=== PATIENT | male | born 1960 | race Two or more races ===

== ENCOUNTER 2019-06-16 12:21 | Inpatient (IN) | payer SELFPAY ==
[~2019-06-16] VITALS: Ht 185.4 cm; Wt 73.1 kg
[2019-06-16 13:29] LABS: Basophils # (auto) 0.2 uL; Basophils % (auto) 1.4 % (0.0-2.0); Eosinophils # (auto) 0.1 uL; Eosinophils % (auto) 0.9 % (0.0-7.0); Hematocrit 52.6 % (41.0-53.0); Hemoglobin 17.6 g/dL (13.5-17.5); Lymphocytes # (auto) 4.6 uL; Lymphocytes % (auto) 28.7 % (10.0-50.0); Mean Corpuscular Hemoglobin 32.7 pg (28.0-32.0); Mean Corpuscular Hgb Conc. 33.4 g/dL (32.0-36.0); Monocytes # (auto) 1.4 uL; Neutrophils # (auto) 9.6 uL; Nucleated Red Blood Cells % 0.2 %; Platelet Count (auto) 230 10^3/uL (140-450); Red Blood Cells 5.37 10^6/uL (4.5-5.90); Red Cell Distribution Width 14.3 % (11.8-14.3); White Blood Cell 15.9 10^3/uL (4.4-10.8)
[2019-06-16 13:44] LABS: Albumin 3.7 g/dL (3.4-5.0); Anion Gap 10 (5-15); Blood Urea Nitrogen 14 mg/dL (7-18); Calcium 8.9 mg/dL (8.5-10.1); Carbon Dioxide 23 mmol/L (21-32); Chloride 106 mmol/L (98-107); Glucose 122 mg/dL (74-106); Lactic Acid w/Reflex 4.8 mmol/L (0.4-2.0); Magnesium 2.1 mg/dL (1.6-2.6); Potassium 3.7 mmol/L (3.5-5.1); Sodium 139 mmol/L (136-145)
[2019-06-16 13:46] LABS: BUN/Creatinine Ratio 11.7; GFR African American 79 mL/min; GFR Non-African American 65 mL/min
[2019-06-16 14:03] LABS: Alanine Aminotransferase 36 U/L (16-61); Alkaline Phosphatase 167 U/L (45-117); Aspartate Aminotransferase 27 U/L (15-37); Bilirubin, Total 0.6 mg/dL (0.2-1.0); Total Protein 8.1 g/dL (6.4-8.2)
[2019-06-16] MEDS ORDERED: SODIUM CHLORIDE 0.9% 2,000 ML IV ONE (14:45)
[2019-06-16] MEDS ORDERED: ALBUTEROL SULF 2.5 MG/0.5ML(0.5%) NEB SOLN NEB PRN (16:30)
[2019-06-16] MEDS ORDERED: ACETAMINOPHEN 500 MG TAB PO PRN (16:30)
[2019-06-16] MEDS ORDERED: ONDANSETRON HCL 4 MG/2 ML VIAL IV PRN (16:30)
[2019-06-16] MEDS ORDERED: MORPHINE SULF INJ 2 MG/ML SYRINGE 1ML IV PRN ×2 (16:30)
[2019-06-16] MEDS ORDERED: NITROGLYCERIN 0.4 MG SL TAB SL PRN (16:30)
[2019-06-16] MEDS ORDERED: HYDROcodone-ACET 5/325MG TAB PO PRN (16:30)
[2019-06-16] MEDS ORDERED: IPRATROPIUM BROM 0.5 MG/2.5ML INH SOL NEB PRN (16:30)
[2019-06-16] MEDS: cefTRIAXone 1GM/50ML D5W 50 ML IV SCH ×2 (16:51→18:46)
[2019-06-16 16:59] LABS: Urine Bacteria NONE SEEN /hpf (None Seen); Urine Blood TRACE /uL (Negative); Urine Mucus FEW (None Seen); Urine Specific Gravity 1.018 (1.001-1.035); Urine WBC 64 /hpf (0 - 3)
[2019-06-16 17:11] LABS: Alcohol, Urine < 3.0 mg/dL (0-5); Amphetamine Screen, Urine NEGATIVE (NEGATIVE); Barbiturate Scree,Urine NEGATIVE (NEGATIVE); Benzodiazephine Screen, Urine NEGATIVE (NEGATIVE); Cannabinoid Screen, Urine POSITIVE (NEGATIVE); Cocaine Screen, Urine NEGATIVE (NEGATIVE); Opiate Scree,Urine NEGATIVE (NEGATIVE); Phencyclidine Screen, Urine NEGATIVE (NEGATIVE)
--- NOTE | 2019-06-16 17:28 | NUR ---
PATIENT ARRIVED TO UNIT PATIENT ALERT AND ORIENTED X4 BROTHER AT BEDSIDE. PATIENT DENIES ALL PAIN, SOB OR ANY DISTRESS AT THIS TIME. ORIENTED PATIENT TO UNIT, STAFF, CALL LIGHT VISITING HOURS AND SMOKING POLICY AND POC. PATIENT VERBALIZED UNDERSTANDING. BED IS IN LOWEST LOCKED POSITION CALL LIGHT WITHIN REACH. WILL CONTINUE TO MONITOR
[2019-06-16 18:15] VITALS: BP 158/98
--- NOTE | 2019-06-16 19:00 | NUR ---
RT NOTE: PT SITTING UP RIGHT ON ROOM AIR WITH NO RESPIRATORY DISTRESS. NOTED PT ALERT AND ORIENTATED. SPO2 98% HR 102, RR 18. BS CLEAR AND DECREASED. PT DENIES SOB AT THIS TIME. PT NOTIFIED TO HAVE RT PAGED IF SOB OCCURS.
--- NOTE | 2019-06-16 19:50 | NUR ---
OPENING SHIFT NOTE RECEIVED REPORT FROM DAYSHIFT RN. PATIENT A/O X4, AMBULATORY. PATIENT LYING IN BED WITH EYES CLOSED. NO S/S OF DISTRESS OR SOB, NO PAIN NOTED OR REPORTED. UPDATED PATIENT ON POC, VERBALIZED UNDERSTANDING. BED LOCKED IN LOW POSITION, CALL LIGHT WITHIN REACH. WILL CONTINUE TO MONITOR PATIENT Q1HR AND PRN.
[2019-06-16 22:00] VITALS: BP 139/96
[2019-06-16] MEDS: CLINDAMYCIN 300MG IV 50 ML IV SCH (22:05)
[2019-06-17 03:15] VITALS: BP 139/96
[2019-06-17 05:14] VITALS: BP 137/88
[2019-06-17 05:18] LABS: Basophils # (auto) 0.1 uL; Basophils % (auto) 0.6 % (0.0-2.0); Eosinophils # (auto) 0.1 uL; Eosinophils % (auto) 1.3 % (0.0-7.0); Hematocrit 46.6 % (41.0-53.0); Hemoglobin 15.7 g/dL (13.5-17.5); Lymphocytes # (auto) 2.9 uL; Lymphocytes % (auto) 27.4 % (10.0-50.0); Mean Corpuscular Hemoglobin 32.9 pg (28.0-32.0); Mean Corpuscular Hgb Conc. 33.6 g/dL (32.0-36.0); Monocytes # (auto) 1.2 uL; Monocytes % (auto) 11.6 % (0.0-12.0); Neutrophils # (auto) 6.3 uL; Neutrophils % (auto) 59.1 % (37.0-80.0); Nucleated Red Blood Cells % 0.1 %; Platelet Count (auto) 178 10^3/uL (140-450); Red Blood Cells 4.76 10^6/uL (4.5-5.90); Red Cell Distribution Width 14.3 % (11.8-14.3); White Blood Cell 10.6 10^3/uL (4.4-10.8)
[2019-06-17] MEDS: CLINDAMYCIN 300MG IV 50 ML IV SCH ×3 (05:42→21:44)
[2019-06-17 05:46] LABS: Albumin 2.9 g/dL (3.4-5.0); BUN/Creatinine Ratio 14.3; Calcium 8.2 mg/dL (8.5-10.1); Potassium 3.9 mmol/L (3.5-5.1)
[2019-06-17 05:51] LABS: Bilirubin, Total 0.5 mg/dL (0.2-1.0); Total Protein 6.5 g/dL (6.4-8.2)
--- NOTE | 2019-06-17 06:10 | NUR ---
Respiratory note: NO RESPIRATORY DISTRESS NOTED AT THIS TIME. HHN TX NMOT INDICATED AT THIS TIME. HR 82 SPO2 94 ON RA RR 14 BS CLEAR. PT EDUCATED ON USE OF NURSE CALL BUTTON IN CASE HE FEELS SOB.
[2019-06-17 08:00] VITALS: BP 133/86
--- NOTE | 2019-06-17 08:00 | NUR ---
Opening Shift Note Assumed care of patient, awake and alert. No S/S of distress/SOB, on and off left earlobe pain secondary to mass. Instructed on POC and to call for assist PRN, will continue to monitor for changes Q1hr and PRN.
[2019-06-17] MEDS: FAMOTIDINE 20 MG TAB PO SCH (09:41)
[2019-06-17 12:00] VITALS: BP 133/78
--- NOTE | 2019-06-17 12:30 | NUR ---
WOUND CARE NOTE: Wound care consult received from nursing for left ear abscess. Patient is a 59 yo male admitted for sepsis. Patient with no significant medical history. Reviewed photos taken by nursing for reference. Discussed with bedside RNGibran. Patient is alert, denies pain. Last Timo score is 20. Patient noted to have small lump/tumor to left ear lobe covered in crust and measures 1x1cm. Patient is pending surgical consult for lesion biopsy. No open wounds noted. No further need by wound care team at this time.
[2019-06-17] MEDS ORDERED: NICOTINE 21MG/24 HR TOPICAL PATCH TD ONE (14:15)
--- NOTE | 2019-06-17 16:00 | NUR ---
Patient stated feeling anxious because of the upcoming procedure tomorrow for biopsy and possible excision of left earlobe lesion. Patient wanted to go down to smoke. Nicotine patch wasn't helping and requested to be removed. Patient previously signed an AMA form to smoke.
--- NOTE | 2019-06-17 16:10 | NUR ---
Patient out of bed.
[2019-06-17 16:26] LABS: INR 0.99 (0.9-1.15); Partial Thromboplastin Time 27.4 sec (23.64-32.05)
--- NOTE | 2019-06-17 16:30 | NUR ---
Patient back to bed. Will continue care.
[2019-06-17 17:00] VITALS: BP 139/77
--- NOTE | 2019-06-17 18:00 | NUR ---
Patient signed consents for biopsy and possible excision of left earlobe lesion. Instructed to be NPO after midnight. Patient verbalized understanding.
--- NOTE | 2019-06-17 19:23 | NUR ---
PT CHECKED FOR PRN TX. TX IS NOT INDICATED AT THIS TIME. PT DENIES SOB. PT IS AWARE TO CALL IF TX IS NEEDED. HR 101 RR 16 POX 96% ON ROOM AIR. B/S CLEAR.
[2019-06-17] MEDS: cefTRIAXone 1GM/50ML D5W 50 ML IV SCH (20:46)
[2019-06-17 21:56] VITALS: BP 128/82
[2019-06-18 05:00] VITALS: BP 126/79
[2019-06-18] MEDS: CLINDAMYCIN 300MG IV 50 ML IV SCH ×3 (06:09→21:54)
[2019-06-18 07:10] LABS: BUN/Creatinine Ratio 13.6; Calcium 8.2 mg/dL (8.5-10.1); Potassium 3.5 mmol/L (3.5-5.1)
--- NOTE | 2019-06-18 08:00 | NUR ---
Opening Shift Note Assumed care of patient, awake and alert. No S/S of distress/SOB or pain. Instructed on POC and to call for assist PRN, will continue to monitor for changes Q1hr and PRN.
[2019-06-18 08:59] VITALS: BP 140/87
[2019-06-18] MEDS: FAMOTIDINE 20 MG TAB PO SCH (10:00)
[2019-06-18] MEDS: NICOTINE 21MG/24 HR TOPICAL PATCH TD SCH (10:00)
--- NOTE | 2019-06-18 12:50 | NUR ---
Patient brought via bed to Pre-op for biopsy and possible excision of left earlobe lesion to be performed by Dr. Earl. Reports given to Ange PORTILLO.
[2019-06-18 13:00] VITALS: BP 147/86
[2019-06-18] MEDS ORDERED: ceFAZolin 1GM/50ML 50 ML IV ONE (13:10)
[2019-06-18] MEDS ORDERED: MIDAZOLAM HCL 1MG/1ML-2 ML VIAL ONE (13:26)
[2019-06-18] MEDS ORDERED: METOCLOPRAMIDE HCL 5MG/ml INJ 2ml VIAL ONE (13:27)
[2019-06-18] MEDS ORDERED: LIDOCAINE 1% (LOCAL ANESTH.) PF 5ml SDV ONE (13:28)
[2019-06-18] MEDS ORDERED: LIDOCAINE HCL 2% TOP JELLY 5ML TOP ONE (13:29)
[2019-06-18] MEDS ORDERED: fentaNYL CITRATE 100 MCG/2 ML VL ONE (13:36)
[2019-06-18] MEDS ORDERED: ePHEDrine SULFATE 50 MG/ML AMP ONE (13:41)
[2019-06-18] MEDS ORDERED: SODIUM CHLORIDE LOCK 10 ML ONE (13:41)
[2019-06-18] MEDS ORDERED: HYDROmorphone HCL 2 MG/ML VL IV PRN (13:45)
[2019-06-18] MEDS ORDERED: NALOXONE HCL 0.4 MG/ML VIAL IV PRN (13:45)
[2019-06-18] MEDS ORDERED: ONDANSETRON HCL 4 MG/2 ML VIAL IV PRN (13:45)
[2019-06-18] MEDS: LIDOCAINE W/ EPINEPHRINE 1% 20ML VIAL ONE ×2 (13:49→13:50)
--- NOTE | 2019-06-18 14:00 | NUR ---
Received reports from [facility]. Patient back to room via bed S/P Biopsy and excision of left earlobe lesion performed by Dr. Earl. Patient is alert and oriented, not in respiratory distress. Bed alarm on and side rails up x2.
[2019-06-18] MEDS ORDERED: PROPOFOL 10 MG/ML 20 ML IV ONE (14:24)
[2019-06-18 17:00] VITALS: BP 148/86
--- NOTE | 2019-06-18 18:49 | NUR ---
PT ASSESSED FOR PRN MED NEB TX. SPO2 96% ON RA, HR 97. PT DENIES ANY RESPIRATORY DISTRESS. NO TX INDICATED. PT IS AWARE TO HAVE RT PAGED IF TX NEEDED.
[2019-06-18] MEDS: cefTRIAXone 1GM/50ML D5W 50 ML IV SCH (20:10)
[2019-06-18 21:59] VITALS: BP 118/80
--- NOTE | 2019-06-19 04:34 | NUR ---
Care endorsed to Landon PORTILLO.
[2019-06-19 04:52] VITALS: BP 120/77
[2019-06-19] MEDS: CLINDAMYCIN 300MG IV 50 ML IV SCH (05:46)
--- NOTE | 2019-06-19 07:18 | NUR ---
CLOSING NOTES ENDORSED CARE TO DAY SHIFT NURSEOLGA.
[2019-06-19 07:27] LABS: Basophils # (auto) 0.1 uL; Basophils % (auto) 0.8 % (0.0-2.0); Eosinophils # (auto) 0.1 uL; Eosinophils % (auto) 0.4 % (0.0-7.0); Hematocrit 46.1 % (41.0-53.0); Hemoglobin 15.5 g/dL (13.5-17.5); Lymphocytes # (auto) 2.3 uL; Lymphocytes % (auto) 16.7 % (10.0-50.0); Mean Corpuscular Hemoglobin 32.9 pg (28.0-32.0); Mean Corpuscular Hgb Conc. 33.6 g/dL (32.0-36.0); Monocytes # (auto) 1.3 uL; Neutrophils # (auto) 10.3 uL; Neutrophils % (auto) 73.1 % (37.0-80.0); Platelet Count (auto) 181 10^3/uL (140-450); Red Blood Cells 4.71 10^6/uL (4.5-5.90); White Blood Cell 14.1 10^3/uL (4.4-10.8)
[2019-06-19 07:47] LABS: BUN/Creatinine Ratio 10.1; Calcium 8.1 mg/dL (8.5-10.1); Potassium 3.3 mmol/L (3.5-5.1)
--- NOTE | 2019-06-19 08:00 | NUR ---
Opening Shift Note Assumed care of patient, awake and alert. No S/S of distress/SOB or pain. With left earlobe dressing dry and intact. Instructed on POC and to call for assist PRN, will continue to monitor for changes Q1hr and PRN.
--- NOTE | 2019-06-19 08:29 | NUR ---
RT NOTE: PRN BREATHING TX. NOT INDICATED AT THIS TIME. NO S/S OF RESPIRATORY DISTRESS NOTED. PT. HR. 94, RR 16, POX 95% R/A. PT. AWARE TO NOTIFY RN IF TX. IS NEEDED.
[2019-06-19 08:30] VITALS: BP 130/83
[2019-06-19] MEDS: FAMOTIDINE 20 MG TAB PO SCH (09:37)
[2019-06-19] MEDS ORDERED: POTASSIUM CHL 20 Meq TABLET PO ONE (09:45)
[2019-06-19] MEDS: NICOTINE 21MG/24 HR TOPICAL PATCH TD SCH (10:00)
[2019-06-19] MEDS ORDERED: POVIDONE IODINE 10 % TOPICAL OINT 30GM TOP SCH (10:00)
[2019-06-19 11:42] VITALS: BP 130/83
[2019-06-19] MEDS ORDERED: CEPH-37 PO (11:47)
[2019-06-19] MEDS ORDERED: ALBUAER3 IN (11:50)
--- NOTE | 2019-06-19 15:00 | NUR ---
Discharge instructions given as ordered. Encourage to follow up with Dr. Earl on 07/01/19 at 10:15am at [address] [facility] Surgery office as instructed. NO PCP and no insurance, urgent care coupon given and instructions received regarding follow up for outpatient. All questions and concerns addressed. Patient verbalized understanding. Medication reconciliation form completed and copy given to patient. IV removed with catheter intact, pressure dressing applied. Telemetry unit returned to ICU. Patient taken to vehicle via wheelchair with all personal belongings, accompanied by staff and family member. No distress noted at time of departure.
== END 2019-06-19 14:25 | disposition home or self-care (01) | DRG 191 ==
LOC: ER 12:25 → TELE 12:26 → TELE-EAST 17:29
PROVIDERS: ADMIT Nurse Practitioner Acute Care; ATTEND Internal Medicine
PROC: 09B1XZZ Excision of Left External Ear, External Approach (ICD-10-PCS; principal; 2019-06-18 13:14)
DX: J44.1 Chronic obstructive pulmonary disease with (acute) exacerbation (principal); R65.10 Systemic inflammatory response syndrome (SIRS) of non-infectious origin without acute organ dysfunction; C44.229 Squamous cell carcinoma of skin of left ear and external auricular canal; F17.210 Nicotine dependence, cigarettes, uncomplicated; H60.12 Cellulitis of left external ear; E78.5 Hyperlipidemia, unspecified; E87.6 Hypokalemia; F10.10 Alcohol abuse, uncomplicated; F12.10 Cannabis abuse, uncomplicated; Y90.9 Presence of alcohol in blood, level not specified; E11.9 Type 2 diabetes mellitus without complications; Z80.9 Family history of malignant neoplasm, unspecified; Z86.73 Personal history of transient ischemic attack (TIA), and cerebral infarction without residual deficits; Z71.6 Tobacco abuse counseling
CPT/HCPCS: 36415; 71045; 80048; 80053; 80061; 80307; 81001; 83605; 83615; 83735; 83880; 84484; 85025; 85379; 85610; 85730; 87040; 87086; 93005; 94761; 96360; G0378; J0690; J0696; J2250; J2405; J2704; J3490